=== PATIENT | female | born 1970 | race Caucasian/White ===

== ENCOUNTER 2018-11-05 07:54 | Day surgery (SDC) | payer BC ==
[~2018-11-05] VITALS: Ht 160 cm; Wt 57.2 kg
[2018-11-05] MEDS ORDERED: MIDAZOLAM HCL 5 MG/5 ML VIAL IVP ONE (07:55)
[2018-11-05] MEDS ORDERED: fentaNYL CITRATE/PF 100 MCG/2 ML AMP IVP ONE (07:55)
[2018-11-05] MEDS ORDERED: PROPOFOL 200MG/ 20ML VIAL (DIPRIVAN) IV ONE (07:55)
[2018-11-05] MEDS ORDERED: WATER FOR IRRIGATION,STERILE 1,000 ML IRRIG.SOLN IR ONE (07:55)
[2018-11-05] MEDS ORDERED: BUPIVACAINE /PF 0.25% 30 ML VIAL INJ ONE (07:55)
[2018-11-05] MEDS ORDERED: SEVOFLURANE 15 MIN GAS INH ONE (07:55)
[2018-11-05 08:22] LABS: HCG,QUAL RESULT NEGATIVE (NEGATIVE)
[2018-11-05] MEDS ORDERED: CEFAZOLIN SOD 1 GM/ ISO 50 ML PREMIX IV ONE (08:45)
[2018-11-05] MEDS ORDERED: KETOROLAC TROMETHAMINE 30 MG VIAL IVP PRN (10:30)
[2018-11-05] MEDS ORDERED: fentaNYL CITRATE/PF 100 MCG/2 ML AMP IVP PRN ×2 (10:30)
[2018-11-05] MEDS ORDERED: D5/0.45 NS 1,000 ML IV SCH (12:12)
[2018-11-05] MEDS ORDERED: HYDROmorphone 2 MG/ML VIAL IVP PRN (12:15)
[2018-11-05] MEDS ORDERED: HYDROcodone/ACETAMIN 5-325 MG TAB (NORCO/ VICODIN) PO PRN ×2 (12:15)
[2018-11-05 15:23] VITALS: BP_SYST 128
== END 2018-11-05 14:45 | disposition home or self-care (01) ==
LOC: SDS 07:54 → SMU 07:55 → SDS 14:45
PROVIDERS: ATTEND Colon & Rectal Surgery
DX: C50.911 Malignant neoplasm of unspecified site of right female breast (principal); I10 Essential (primary) hypertension; J30.9 Allergic rhinitis, unspecified; D25.1 Intramural leiomyoma of uterus; Z98.890 Other specified postprocedural states; Z87.891 Personal history of nicotine dependence; Z82.49 Family history of ischemic heart disease and other diseases of the circulatory system; Z80.3 Family history of malignant neoplasm of breast; Z79.899 Other long term (current) drug therapy
CPT/HCPCS: 19081; 19301; 84703; 88305; 88307; 88341; 88342; J0690; J2250; J2704; J3010; J3490; J7120

== ENCOUNTER 2018-11-22 09:45 | Day surgery (SDC) | payer BC ==
[~2018-11-22] VITALS: Ht 160 cm; Wt 57.6 kg
[~2018-11-22 09:45] MED LIST: CEFAZOLIN 1 GM IVPB PREMIX 50 ML IV ONE
[2018-11-22 10:25] LABS: HCG,QUAL RESULT NEGATIVE (NEGATIVE)
[2018-11-22] MEDS ORDERED: ROCURONIUM BROMIDE 10 MG/ML (ZEMURON) IV ONE (12:40)
[2018-11-22] MEDS ORDERED: BUPIVACAINE /PF 0.25% 30 ML VIAL INJ ONE (12:40)
[2018-11-22] MEDS ORDERED: WATER FOR IRRIGATION,STERILE 1,000 ML IRRIG.SOLN IR ONE (12:40)
[2018-11-22] MEDS ORDERED: GLYCOPYRROLATE 0.2 MG/ML VIAL IJ ONE (12:40)
[2018-11-22] MEDS ORDERED: ISOSULFAN BLUE 5 ML VIAL (LYMPHAZURIN) INJ ONE (12:40)
[2018-11-22] MEDS ORDERED: PROPOFOL 200MG/ 20ML VIAL (DIPRIVAN) IV ONE (12:40)
[2018-11-22] MEDS ORDERED: PHENYLEPHRINE HCL 10 MG/ML VIAL (NEOSYNEPHRINE) IV ONE (12:40)
[2018-11-22] MEDS ORDERED: fentaNYL CITRATE/PF 100 MCG/2 ML AMP IVP ONE (12:40)
[2018-11-22] MEDS ORDERED: MIDAZOLAM HCL 5 MG/5 ML VIAL IVP ONE (12:40)
[2018-11-22] MEDS ORDERED: ONDANSETRON HCL 4 MG/2 ML VIAL IVP ONE (12:40)
[2018-11-22] MEDS ORDERED: SEVOFLURANE 15 MIN GAS INH ONE (12:40)
[2018-11-22] MEDS ORDERED: D5/0.45 NS 1,000 ML IV SCH (13:28)
[2018-11-22] MEDS ORDERED: HYDROcodone/ACETAMIN 5-325 MG TAB (NORCO/ VICODIN) PO PRN ×2 (13:30)
[2018-11-22] MEDS ORDERED: HYDROmorphone 1 MG INJ. 1 MG/ML AMPUL IVP PRN (13:30)
[2018-11-22] MEDS ORDERED: LR 1,000 ML IV SCH (13:34)
[2018-11-22] MEDS ORDERED: MORPHINE 4 MG/ML INJ. SYRINGE IVP PRN ×3 (13:45)
[2018-11-22 14:11] VITALS: BP_SYST 122
[2018-11-22] MEDS ORDERED: HYDROcodone/ACETAMIN 5-325 MG TAB (NORCO/ VICODIN) ONE (14:53)
== END 2018-11-22 15:25 | disposition home or self-care (01) ==
LOC: SDS 09:45 → EDSTATUS 12:00 → SDS 15:25
PROVIDERS: ATTEND Colon & Rectal Surgery
DX: R59.9 Enlarged lymph nodes, unspecified (principal); C50.912 Malignant neoplasm of unspecified site of left female breast; I10 Essential (primary) hypertension; Z80.3 Family history of malignant neoplasm of breast; Z79.899 Other long term (current) drug therapy
CPT/HCPCS: 38525; 78195; 84703; 88307; A9541; J0690; J2250; J2370; J2405; J2704; J3010; J3490 ×2; J7120; Q9968